=== PATIENT | male | born 1975 | race Caucasian/White ===

== ENCOUNTER → 2023-05-29 06:37 | Day surgery (SDC) | payer OTHER, SELFPAY | LOC: GI 06:37 | PROVIDERS: ATTENDING PHYSICIAN Internal Medicine Gastroenterology | DX: Z12.11 Encounter for screening for malignant neoplasm of colon (principal); K64.8 Other hemorrhoids; K57.30 Diverticulosis of large intestine without perforation or abscess without bleeding; D12.2 Benign neoplasm of ascending colon | CPT/HCPCS: 45385 ==

== ENCOUNTER 2024-05-21 08:16 | Emergency (ER) | payer OTHER, SELFPAY ==
[2024-05-21 08:17] VITALS: BP 139/88
[2024-05-21 09:00] LABS: COVID-19 Antigen Negative (Negative)
--- NOTE | 2024-05-21 09:10 | ED.GENMED ---
History of Present Illness
<Caterina Saha MD, Resident - Last Filed: 05/21/24 12:51>
General
Chief Complaint: Cold/Flu/URI Symptoms
Time Seen by Provider: 05/21/24 08:55
History of Present Illness
History of Present Illness:
This is a 49-year-old male who presents to the ED complaining of URI symptoms including fever, nonproductive cough. Patient reports symptoms started on Monday, including subjective fever of 100 �F. Reports his kids were sick the week before with
similar symptoms. He reports he has been taking ibuprofen, Tylenol for fevers and Mucinex for his cough. Initially had mild shortness of breath and fatigue, but now has resolved. He is tolerating oral and liquids. He admits persistent
dehydration, and mild sore throat. In addition, patient reports muscle soreness. reports he has been going to the gym more often and taking creatine supplement.
Past History
<Caterina Saha MD, Resident - Last Filed: 05/21/24 12:51>
Social History
Tobacco: Non-smoker
Alcohol: Former
Drug: None
Phy Exam
<Caterina Saha MD, Resident - Last Filed: 05/21/24 12:51>
General Physical Exam
General Presentation: no apparent distress
ENT Exam
ENT Exam: other (Dry mucosal membrane)
Eye Exam
Eye Exam: EOMI
Cardiovascular Exam
Cardiovascular Exam: regular rate/rhythm and no edema
Pulmonary Exam
Pulmonary Exam: lungs clear, no respiratory distress and no rhonchi
Musculoskeletal Exam
Musculoskeletal Exam: full ROM
Psychiatric Exam
Psychiatric Exam: normal mood/affect
Course
<Caterina Saha MD, Resident - Last Filed: 05/21/24 12:51>
Orders/Labs/Results
Orders:
Orders
05/21/24 08:22
COVID-19 Antigen Urgent
Source: Nasal Swab
Influenza A+B Rapid Molecular Urgent
VALERIY Source: Nasal Swab
Specimen Description:
05/21/24 09:10
Ibuprofen [Motrin] 600 mg PO NOW STA
05/21/24 09:24
0.9% Sodium Chloride 1000 ml [Nss] 1,000 ml IV BOLUS
05/21/24 09:25
CR Chest - 2 Views Urgent
Comment:
Reason For Exam: cough and fever
05/21/24 09:33
CPK [Creatine Phosphokinase] Urgent
Complete Blood Count/With Diff Urgent
Comprehensive Metabolic Panel Urgent
Monotest Urgent
Comment: ADD
Rapid Strep Group A Urgent
VALERIY Source: Throat/Pharynx
Specimen Description:
Date Specimen was Collected: 05/21/24
Time Specimen was Collected: 09:32
05/21/24 10:11
Add On- LAB Urgent
Tests Added?: monotest
05/21/24 10:26
Acetaminophen [Tylenol] 1,000 mg .ROUTE .STK-MED ONE
05/21/24 10:27
Acetaminophen [Tylenol] 1,000 mg PO NOW STA
Abnormal Lab Results
05/21/24
09:33
WBC 19.4 H 10^3/uL
(4.8-10.8)
RBC 4.31 L 10^6/uL
(4.70-6.10)
Hct 37.2 L %
(39.0-52.0)
Abs Immat Gran (auto) 0.1 H 10^3/uL
(0-0.05)
Absolute Neuts (auto) 16.3 H 10^3/uL
(1.4-6.5)
Absolute Lymphs (auto) 1.1 L 10^3/uL
(1.2-3.4)
Absolute Monos (auto) 1.8 H 10^3/uL
(0.1-0.6)
Immature Gran % 0.6 H %
(0-0.5)
Neutrophils % 84.3 H %
(42.2-75.2)
Lymphocytes % 5.7 L %
(20.5-51.1)
Glucose 155 H mg/dl
(70-99)
Total Bilirubin 2.7 H mg/dl
(0.2-1.3)
AST 120 H U/L
(17-59)
ALT 139 H U/L
(0-50)
Creatine Kinase 548 H U/L
(55-170)
05/21/24 09:33
05/21/24 09:33
Vital Signs
Initial and Last Documented VS:
Initial Vital Signs
Temp Pulse Resp BP Pulse Ox
100.6 F H 124 20 139/88 96
05/21/24 08:17 05/21/24 08:17 05/21/24 08:17 05/21/24 08:17 05/21/24 08:17
Last Documented Vital Signs
Temp Pulse Resp BP Pulse Ox
98.8 F 100 18 134/84 98
05/21/24 11:10 05/21/24 11:10 05/21/24 11:10 05/21/24 11:10 05/21/24 11:10
<Daniel Nielson, DO - Last Filed: 05/21/24 10:21>
Orders/Labs/Results
Orders:
Orders
05/21/24 08:22
COVID-19 Antigen Urgent
Source: Nasal Swab
Influenza A+B Rapid Molecular Urgent
VALERIY Source: Nasal Swab
Specimen Description:
05/21/24 09:10
Ibuprofen [Motrin] 600 mg PO NOW STA
05/21/24 09:24
0.9% Sodium Chloride 1000 ml [Nss] 1,000 ml IV BOLUS
05/21/24 09:25
CR Chest - 2 Views Urgent
Comment:
Reason For Exam: cough and fever
05/21/24 09:33
CPK [Creatine Phosphokinase] Urgent
Complete Blood Count/With Diff Urgent
Comprehensive Metabolic Panel Urgent
Monotest Urgent
Comment: ADD
Rapid Strep Group A Urgent
VALERIY Source: Throat/Pharynx
Specimen Description:
Date Specimen was Collected: 05/21/24
Time Specimen was Collected: 09:32
05/21/24 10:11
Add On- LAB Urgent
Tests Added?: monotest
05/21/24 10:26
Acetaminophen [Tylenol] 1,000 mg .ROUTE .STK-MED ONE
05/21/24 10:27
Acetaminophen [Tylenol] 1,000 mg PO NOW STA
Abnormal Lab Results
05/21/24
09:33
WBC 19.4 H 10^3/uL
(4.8-10.8)
RBC 4.31 L 10^6/uL
(4.70-6.10)
Hct 37.2 L %
(39.0-52.0)
Abs Immat Gran (auto) 0.1 H 10^3/uL
(0-0.05)
Absolute Neuts (auto) 16.3 H 10^3/uL
(1.4-6.5)
Absolute Lymphs (auto) 1.1 L 10^3/uL
(1.2-3.4)
Absolute Monos (auto) 1.8 H 10^3/uL
(0.1-0.6)
Immature Gran % 0.6 H %
(0-0.5)
Neutrophils % 84.3 H %
(42.2-75.2)
Lymphocytes % 5.7 L %
(20.5-51.1)
Glucose 155 H mg/dl
(70-99)
Total Bilirubin 2.7 H mg/dl
(0.2-1.3)
AST 120 H U/L
(17-59)
ALT 139 H U/L
(0-50)
Creatine Kinase 548 H U/L
(55-170)
05/21/24 09:33
05/21/24 09:33
Vital Signs
Initial and Last Documented VS:
Initial Vital Signs
Temp Pulse Resp BP Pulse Ox
100.6 F H 124 20 139/88 96
05/21/24 08:17 05/21/24 08:17 05/21/24 08:17 05/21/24 08:17 05/21/24 08:17
Last Documented Vital Signs
Temp Pulse Resp BP Pulse Ox
98.8 F 100 18 134/84 98
05/21/24 11:10 05/21/24 11:10 05/21/24 11:10 05/21/24 11:10 05/21/24 11:10
<Caterina Saha MD, Resident - Last Filed: 05/21/24 12:51>
MDM/Problems Addressed
MDM/Problems Addressed:
This is a 49-year-old male who presents with URI symptoms including fever, nonproductive cough. Nontoxic-appearing on exam, dry mucosal membrane. Lungs clear to auscultation bilaterally. Given dry mucosal membrane, will start on IV fluids, check
labs, obtain a strep throat. Etiology likely viral syndrome.
<Caterina Saha MD, Resident - Last Filed: 05/21/24 12:51>
*Critical Care Note
Total Time (30-74mins, 75-104mins- exclusive of procedures): Not Applicable
<Daniel Nielson, DO - Last Filed: 05/21/24 10:21>
Update Note
Update Note:
Case discussed with radiology. I do appreciate a pneumonia versus mass on his right middle lobe on the chest x-ray. Radiology also believes this is likely pneumonia but recommends repeat chest x-ray in 2 weeks to ensure resolution. Patient made
aware. Given his symptoms, persistent fevers with leukocytosis, will start dual antibiotic therapy with doxycycline and Augmentin.
ED Attending Note
<Caterina Saha MD, Resident - Last Filed: 05/21/24 12:51>
-
Portions of this chart may have been created with voice recognition software.� Occasional wrong word or��sound alike� substitutions may have occurred due to the inherent limitations of voice recognition software.
<Daniel Nielson, DO - Last Filed: 05/21/24 10:21>
ED Attending Note
Patient seen and examined by attending physician: Yes
I performed a history and physical exam of patient and discussed management with resident, I reviewed resident's note and agree with documented findings and plan of care.: Yes
ED Attending Note:
I have seen and evaluated the patient with a [id number] encounter. I have spoken to the resident and involved in the medical history, the physical exam, medical decision making.
Evaluation and management service: agree unless noted differently below.
Results interpretation: agree unless noted differently below.
Focused HPI: 49-year-old male presenting with flulike symptoms. His whole family has been dealing with cough and fevers. At 1 point, he started required amoxicillin for an ear infection. He does complain of a mildly sore throat and persistent
dehydration. Patient states he has significant amount of sweating at nighttime. He has decreased urination.
Physical exam: Dry mucous membranes. Otherwise well-appearing nontoxic. Posterior pharynx mildly erythematous. Uvula midline. Lungs appear clear. Abdomen soft nontender
Medical Decision Making: We discussed likely viral syndrome. Will obtain basic blood work and provide IV fluids. Will obtain strep throat testing as well
Discharge Plan
Departure
Patient Disposition: Home (Routine Discharge)
Date of Disposition: 05/21/24
Time of Disposition: 10:49
Patient with high blood pressure during this ER visit?: No
Discharge Problem:
Pneumonia
Prescriptions:
New
amoxicillin-pot clavulanate 875-125 mg tablet
1 tab PO BID Qty: 14 0RF
Rx Instructions:
for total 7 days
doxycycline hyclate 100 mg capsule
100 mg PO BID Qty: 14 0RF
Rx Instructions:
for total 7 days
Referrals:
NONE,* [Family Provider] -
Activity Restrictions/Additional Instructions:
Please return for any worsening symptoms.
You may return at any time if you have further concerns.
Please follow up with your doctor at the first available appointment, preferably this week.
The chest x-ray was concerning for a right lower lobe pneumonia. The radiologist recommended that you have this x-ray repeated in 2 weeks after antibiotic treatment to ensure resolution. If the area in question has not changed, your primary care
doctor will want to obtain a CT scan to rule out a mass.
Thank you for choosing [facility].
Interventions
Interventions:
*Risk Screen - Suicide Last Done: 05/21/24 08:17
*General Assessment Last Done: 05/21/24 08:17
*Neglect/Abuse Screening Last Done: 05/21/24 08:17
*Nursing Disposition Last Done: 05/21/24 11:12
ED- Pulmonary Assessment Last Done: 05/21/24 10:09
Discharge Date and Time
Discharge Date/Time: 05/21/24 11:15
Print Language: SURINAMESE
[2024-05-21] MEDS: MOTRIN 600 MG PO (09:25)
[2024-05-21] MEDS: NSS 1000 IV (09:32)
[2024-05-21 09:44] LABS: % Basophils 0.3 % (0-2); % Immature Granulocytes 0.6 % (0-0.5); % Lymphocytes 5.7 % (20.5-51.1); % Monocytes 9.1 % (1.7-9.3); % Neutrophils 84.3 % (42.2-75.2); Absolute Basophils 0.1 10^3/uL (0-0.2); Absolute Immature Granulocytes 0.1 10^3/uL (0-0.05); Absolute Lymphocytes 1.1 10^3/uL (1.2-3.4); Absolute Monocytes 1.8 10^3/uL (0.1-0.6); Absolute Neutrophils 16.3 10^3/uL (1.4-6.5); Hematocrit 37.2 % (39.0-52.0); Hemoglobin 13.1 g/dL (13.0-18.0); Mean Corp Hgb Conc. 35.2 g/dL (33.0-37.0); Mean Corpuscular Hgb 30.4 pg (27.0-31.0); Mean Corpuscular Volume 86.3 fL (80.0-94.0); Nucleated Red Blood Cells % 0 % (-); Platelet Count 285 10^3/uL (130-400); Red Blood Cell Count 4.31 10^6/uL (4.70-6.10); Red Cell Dist. Width 12.4 % (11.5-14.5); White Blood Cell Count 19.4 10^3/uL (4.8-10.8)
[2024-05-21 09:58] LABS: ALT (SGPT) 139 U/L (0-50); AST (SGOT) 120 U/L (17-59); Alkaline Phosphatase 93 U/L (38-126); Blood Urea Nitrogen 14 mg/dl (9-20); Calcium 9.1 mg/dl (8.4-10.2); Carbon Dioxide 23 mmol/L (22-30); Chloride 102 mmol/L (98-107); Creatine Phosphokinase 548 U/L (55-170); Glucose 155 mg/dl (70-99); Potassium 4.2 mmol/L (3.5-5.1); Sodium 135 mmol/L (135-145); Total Bilirubin 2.7 mg/dl (0.2-1.3); eGFR > 60.00
[2024-05-21] MEDS: TYLENOL 1000 MG PO (10:28)
[2024-05-21 10:34] VITALS: BMI 21.6
[2024-05-21 11:10] VITALS: BP 134/84
[2024-05-21 12:50] LABS: Monotest Negative (Negative)
== END 2024-05-21 11:15 | disposition home or self-care (01) ==
LOC: EMR 08:16
PROVIDERS: EMERGENCY PHYSICIAN Student in an Organized Health Care Education/Training Program
DX: J18.9 Pneumonia, unspecified organism (principal); E86.0 Dehydration; Z11.52 Encounter for screening for COVID-19
CPT/HCPCS: 96360; 99284; 71046; 80053; 82550; 85025; 86308; 87070; 87502; 87811; 87880

== ENCOUNTER → 2024-06-11 13:08 | Outpatient (REF) | payer OTHER, SELFPAY | LOC: RAD 13:08 | PROVIDERS: ATTENDING PHYSICIAN Student in an Organized Health Care Education/Training Program | DX: J18.9 Pneumonia, unspecified organism (principal) | CPT/HCPCS: 71046 ==